=== PATIENT | male | born 2000 | race Two or more races ===

== ENCOUNTER 2020-08-17 22:11 | Emergency (ER) | payer SELFPAY ==
[~2020-08-17] VITALS: Ht 167.6 cm; Wt 63.0 kg
--- NOTE | 2020-08-17 22:30 | PHYS DOC ---
General Adult EDM: Chief Complaint: SEXUALLY TRANSMITTED DISEASE HPI: HPI: Patient is a 20 year old male with no significant medical history who presents to the ED today for STD treatment. Patient's girlfriend was seen a couple minutes ago and treated for STDs. Patient denies any symptoms. Review of Systems: Review of Systems: Constitutional: Denies fever or chills. [] : Request for STD treatment denies dysuria. [] Musculoskeletal: Denies back pain or joint pain. [] Integument: Denies rash. [] Neurologic: Denies headache, focal weakness or sensory changes. [] Psychiatric: Denies depression or anxiety. [] Heart Score: Risk Factors: Risk Factors: DM, Current or recent (<one month) smoker, HTN, HLP, family history of CAD, obesity. Risk Scores: Score 0 - 3: 2.5% MACE over next 6 weeks - Discharge Home Score 4 - 6: 20.3% MACE over next 6 weeks - Admit for Clinical Observation Score 7 - 10: 72.7% MACE over next 6 weeks - Early Invasive Strategies Physical Exam: PE: Constitutional: Well developed, well nourished, no acute distress, non-toxic appearance. [][] Skin: Warm, dry, no erythema, no rash. [] Back: No tenderness, no CVA tenderness. [] Extremities: No tenderness, no cyanosis, no clubbing, ROM intact, no edema. [] Neurologic: Alert and oriented X 3, normal motor function, normal sensory function, no focal deficits noted. [] Psychologic: Affect normal, judgement normal, mood normal. [] EKG: EKG: [] Radiology/Procedures: Radiology/Procedures: [] Course & Med Decision Making: Course & Med Decision Making Pertinent Labs and Imaging studies reviewed. (See chart for details) This is a 20-year-old male patient presenting to the ED today for STD treatment, the girlfriend was in the ED a couple minutes ago and treated. STD treatment offered, education provided. Discharged home Dragon Disclaimer: Dragon Disclaimer: This electronic medical record was generated, in whole or in part, using a voice recognition dictation system. Departure Departure Impression: Primary Impression: Concern about STD in male without diagnosis Disposition: HOME, SELF-CARE Condition: STABLE Patient Instructions: Sexually Transmitted Disease Additional Instructions: You were treated for sexually transmitted diseases. Use protection at all times. Follow-up with your own doctor in 1 to 2 weeks Justicifation of Admission Dx: Justifications for Admission: Justification of Admission Dx: N/A KALEN ARCHULETA APRN Aug 17, 2020 22:30
[2020-08-17 22:40] VITALS: BP 139/70
[2020-08-17] MEDS ORDERED: cefTRIAXone IM 250 MG VIAL IM ONE (23:00)
[2020-08-17] MEDS ORDERED: metroNIDAZOLE 500 MG TABLET PO ONE (23:00)
[2020-08-17] MEDS ORDERED: AZITHROMYCIN 250 MG TABLET. PO ONE (23:00)
== END 2020-08-17 23:02 | disposition home or self-care (01) ==
LOC: ER 22:11
DX: Z20.2 Contact with and (suspected) exposure to infections with a predominantly sexual mode of transmission (principal)
CPT/HCPCS: 96372; 99283; J0696